=== PATIENT | female | born 1960 | race Caucasian/White ===

== ENCOUNTER → 2019-02-07 | Outpatient (CLI) | payer BC, SELFPAY ==
[2017-02-08 16:26] VITALS: BMI 38.7
[2019-02-07 16:12] LABS: Free T3 2.2 pg/mL (2.18-3.98); T4 Free Direct 0.98 ng/dL (0.76-1.46)
[2019-02-07 16:44] LABS: Vitamin D,25 Hydroxy 35.4 ng/mL (29.95-100.01)
[2019-02-07 20:08] LABS: Hemoglobin A1c 7.6 % (4.2-6.3)
[2019-02-10 12:33] LABS: Anti-Thyroglobulin AB < 1.0 IU/mL (0.0-0.9); Thyroglobulin, Serum Qt. 238.4 ng/mL (1.5-38.5)
== END | disposition home or self-care (01) ==
LOC: MFPLAB 14:18
PROVIDERS: Family Provider Family Medicine; PCP Family Medicine; Referring Provider Family Medicine; Visit Provider Family Medicine
DX: E11.9 Type 2 diabetes mellitus without complications (principal); E28.319 Asymptomatic premature menopause; R79.89 Other specified abnormal findings of blood chemistry
CPT/HCPCS: 36415; 82306; 83036; 84432; 84439; 84443; 84481; 86800

== ENCOUNTER → 2019-02-13 | Outpatient (CLI) | payer BC, SELFPAY ==
--- NOTE | 2019-02-13 11:51 | US_ITS ---
STUDY: THYROID ULTRASOUND REASON FOR EXAM: Female, 59 years old. Enlarged thyroid gland TECHNIQUE: Ultrasound evaluation of the thyroid was performed with real-time and static frausto-scale imaging. COMPARISON: None. FINDINGS: RIGHT LOBE: The right lobe of the thyroid gland measures 5.4 x 1.2 x 2.4 cm. There is a heterogeneous echotexture. 2.5 cm isoechoic solid nodule the right lobe for which ultrasound-guided biopsy is recommended. Another 2.3 cm isoechoic solid nodule in the right lobe for which ultrasound-guided biopsy is recommended. LEFT LOBE: The left lobe of the thyroid gland measures 5.8 x 2.2 x 2.8 cm. There is a heterogeneous echotexture. 4.0 cm isoechoic solid nodule the left lobe for which ultrasound-guided biopsy is recommended. ISTHMUS: The isthmus measures 10 mm thick. . The regional lymph nodes are normal. US/Thyroid IMPRESSION: Multinodular thyroid gland with multiple dominant solid nodules for which ultrasound-guided biopsy is recommended. Electronically Signed: Tahir March MD at 14:04 EDT Tel , Service support ,
== END | disposition home or self-care (01) ==
PROVIDERS: Family Provider Family Medicine; PCP Family Medicine; Referring Provider Family Medicine; Visit Provider Family Medicine
DX: R79.89 Other specified abnormal findings of blood chemistry (principal)
CPT/HCPCS: 76536

== ENCOUNTER → 2019-02-21 | Outpatient (CLI) | payer BC, SELFPAY ==
[2017-02-08 16:26] VITALS: BMI 38.7
--- NOTE | 2019-02-21 08:35 | BD_ITS ---
STUDY: DUAL ENERGY X-RAY ABSORPTIOMETRY / DXA REASON FOR EXAM: Female, 59 years old. The patient is postmenopausal. TECHNIQUE: Bone Mineral Density (BMD) measurements of lumbar spine and bilateral hips were obtained. COMPARISON: None. FINDINGS: Lumbar Spine (L1-L4): g/cm2 (1.311) / T-score (0.9) / Z-score (2.1) Findings are suggestive of normal bone density with a low fracture risk. Left Femur Total: g/cm2 (1.094) / T-score (0.7) / Z-score (1.6) Left Femoral Neck: g/cm2 (1.018) / T-score (-0.1) / Z-score (1.1) Right Femur Total: g/cm2 (1.097) / T-score (0.7) / Z-score (1.6) Right Femoral Neck: g/cm2 (1.062) / T-score (0.2) / Z-score (1.4) BD/Dexa Bone Density Study IMPRESSION: The patient is considered normal as outlined below according to World [employer] Organization (WHO) criteria with a low fracture risk. Reference Information: The T-score is the number of standard deviations above or below the standard which is normal for young adults at their peak bone mineral density. The World Health Organization (WHO) interprets the T-scores as follows: Above -1 Normal bone density Between -1 and -2.5 Osteopenia Equal to / or below -2.5 Osteoporosis As a practical clinical guideline, osteopenia may be graded as follows: Mild -1 through -1.5 Moderate -1.6 through -2.0 Severe -2.1 through -2.4 The Z-score is the number of standard deviations above or below age-matched controls. A Z-score of less than -1.5 would be considered abnormal. References: 1. NIH Osteoporosis and Related Bone Diseases http://www.osteo.org 2. International Society for Clinical Densitometry http://www.iscd.org 3. National Osteoporosis Foundation http://www.nof.org Electronically Signed: Johnathan Rangel, at 15:24 EDT , Service support ,
== END | disposition home or self-care (01) ==
LOC: OPBD 08:30
PROVIDERS: Family Provider Family Medicine; PCP Family Medicine; Referring Provider Family Medicine; Visit Provider Family Medicine
DX: E28.319 Asymptomatic premature menopause (principal)
CPT/HCPCS: 77080

== ENCOUNTER → 2019-02-28 | Outpatient (CLI) | payer BC, SELFPAY ==
--- NOTE | 2019-02-28 10:00 | MISC_PTH ---
PATIENT: LARA ALLEN LOC: [facility] U#:[id number] AGE/SX: 59/F ROOM: RE02/28/[address]: Dr. Santos Arrieta MD : 1960 BED: DIS: 02/28/2019 SPEC #: [id number] RECD: 02/28/19 11:32 STATUS: MICHAEL STIVEN #: [id number] MARY: 02/28/19 10:[address]: Santos Arrieta DEPT: SURGICAL PATHOLOGY RECD BY: Hudson Coyle ENTERED: 02/28/19 14:53 SP TYPE: MISC OTHR DR: Dr. Tyrone Spence MD Tissues: Thyroid gland, NOS Procedures: Surgery Specimen Level IV HEADER OPERATION: Ultrasound-guided biopsy, left and right thyroid PRE-OP DIAGNOSIS: Multinodular goiter TISSUE SUBMITTED: Needle core biopsy, left thyroid MICROSCOPIC DIAGNOSIS Left thyroid, needle core biopsy: Thyroid tissue with fibrosis and a few chronic inflammatory cells, consistent with a benign thyroid nodule (clinically multinodular goiter). CE:jay jay 03/01/19 MICROSCOPIC DESCRIPTION Slides are reviewed. GROSS DESCRIPTION Received in fixative is one container labeled with the patient's name and designated needle core biopsy left thyroid. The specimen consists of an elongated piece of mckeon soft tissue measuring 0.5 cm in length and <0.1 cm in diameter. The specimen is totally submitted in one cassette. / SJ:jay jay 02/28/19 TC:3 [facility]: [id number]
[2019-02-28 10:03] VITALS: BMI 38.7
== END | disposition home or self-care (01) ==
LOC: LABSPEC 12:07
PROVIDERS: Family Provider Family Medicine; PCP Family Medicine; Referring Provider Surgery; Visit Provider Surgery
DX: E04.2 Nontoxic multinodular goiter (principal)
CPT/HCPCS: 88305

== ENCOUNTER → 2019-03-08 | Outpatient (CLI) | payer BC, SELFPAY ==
[2019-02-28 10:03] VITALS: BMI 38.7
--- NOTE | 2019-03-08 11:52 | US_ITS ---
STUDY: THYROID ULTRASOUND REASON FOR EXAM: Female, 59 years old. TECHNIQUE: Ultrasound evaluation of the thyroid was performed with real-time and static frausto-scale imaging. COMPARISON: None. FINDINGS: No obvious right lobe of the thyroid is seen however this isthmus is slightly extended to to the right of the midline of the trachea is evidence of multiple heterogeneous nodules in the isthmus as well as in the left lobe of the thyroid both are enlarged. 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 Electronically Signed: Rupali Ardon, at 15:44 EDT Tel , Service support ,
== END | disposition home or self-care (01) ==
PROVIDERS: Family Provider Family Medicine; PCP Family Medicine; Referring Provider Surgery; Visit Provider Surgery
DX: E04.2 Nontoxic multinodular goiter (principal)
CPT/HCPCS: 76536

== ENCOUNTER 2019-04-07 09:01 | Day surgery (SDC) | payer BC, SELFPAY ==
[2019-02-28 10:03] VITALS: BMI 38.7
--- NOTE | 2019-03-18 09:44 | HP_ITS ---
Intake Vital Signs 03/17/19 Body Mass Index (BMI) 38.7 Intake Visit Reasons: Thyroid Recruitment Internship Required: No Is patient in pain?: No Allergies contact metal agent Allergy (Unknown, Verified 03/17/19 08:32) Unknown adhesive tape Allergy (Verified 03/17/19 08:32) Rash latex Allergy (Verified 03/17/19 08:32) Rash Medications Ascorbic Acid [Vitamin C] 500 mg PO DAILY@0800 09/18/16 [History Confirmed 03/17/19] Aspirin [Low Dose Aspirin EC] 81 mg PO DAILY 09/18/16 [History Confirmed 03/17/19] Cetirizine HCl [All Day Allergy] 10 mg PO DAILY 09/18/16 [History Confirmed 03/17/19] Multivitamins,Therapeutic [Multivitamin] 1 tab PO DAILY 09/18/16 [History Confirmed 03/17/19] keto pill PO QDAY 02/22/19 [History Confirmed 03/17/19] turiene PO BID 02/22/19 [History Confirmed 03/17/19] PFSH Medical History Arthritis (Acute) Gout (Acute) Numbness and tingling (Acute) Type 2 diabetes mellitus (Acute) Surgical History H/O bilateral cataract extraction (Acute) H/O colonoscopy (Acute) H/O dilation and curettage (Acute) H/O lumpectomy (Acute) H/O tubal ligation (Acute) H/O: (Acute) History of bilateral knee replacement (Acute) History of tonsillectomy (Acute) Family History Father Arthritis Heart disease Hypertension Hyperlipidemia Stomach ulcer Mother Breast cancer Diabetes Social History (Updated 03/18/19 @ 09:44 by Santos Arrieta MD) Smoking Status: Never smoker alcohol intake: never substance use type: does not use HPI HPI HPI: LARA ALLEN is a 59 F who presents to the office today for HPI HPI Surgical H&P: Yes HPI: LARA ALLEN is a 59 F who presents to the office today for follow-up from an attempted fine-needle aspiration of her right thyroid gland. I originally performed a fine-needle aspiration on her left thyroid on 02/28/2019. This showed thyroid tissue with fibrosis a few chronic inflammatory cells consistent with benign thyroid nodule. At that time of that fine-needle aspiration I really did not think that she had a right thyroid lobe and in fact I did not do any further biopsies on her. I took her to the ultrasound room and attempted to do a right thyroid fine-needle aspiration. But there was only evidence of an absent or hypoplastic right thyroid lobe and that she had an enlarged isthmus and left thyroid lobe with multiple nodules within it. In the trachea itself looks slightly deviated. We therefore did no fine-needle aspiration. Given the fact that her nodule on the left side is greater than 4 cm she is here to discuss a left thyroid lobectomy and isthmusectomy. ROS General General: No weight change, appetite, fatigue, colon cancer, breast cancer or weakness HEENT HEENT: Yes eye surgery (bilat cataract surgery); no difficulty swallowing, eye injury, swollen glands or hoarseness Endo Endocrine: Yes thyroid disease; no diabetes mellitus, thyroid cancer, Hair loss, heat intolerance or cold intolerance Skin Skin: No rash or changing moles Breast Breast: No left breast lump, right breast lump, nipple discharge, breast pain, abnormal mammogram, abnormal US or breast enlargement Musc Musculoskeletal: Yes arthritis; no back problems, rheumatoid arthritis, gout or joint pain Cardio Cardiovascular: No murmur, pacemaker, heart disease, atrial fibrillation, high blood pressure, heart attack, heart stent, palpitations, shortness of breat with exertion or chest pain Psych Psychiatric: No depression, anxiety or hearing voices Resp Respiratory: No shortness of breath, No sleep apnea, No cough, No COPD, No asthma, No emphysema, No wheezing Gastro Gastrointestinal: No abdominal pain, No nausea or vomiting, No diarrhea, No constipation, No blood in stool, No acid reflux, No hemorrhoids, No ulcers, No gallbladder problem, No black,tarry stools Alex Hematologic: No blood thinners, No blood disorders, No bleeding, No anemia, No blood clots Neuro Neurologic: No weakness Exam Const General: no acute distress, well developed, well hydrated Orientation: oriented to person, oriented to place, oriented to time [facility] Head: normocephalic, atraumatic Ears: external ears normal Mouth: moist mucous membranes Other: Thyroid Exam: Thyroid is enlarged on the left side. But no hard palpable nodules are identified. There is no lymphadenopathy bilaterally. Eyes Sclera: sclerae normal Pupils: normal by confrontation Neck Neck: no lymphadenopathy noted Neck mass: No Thyroid: thyroid normal, symmetrical Chest Chest palpation & inspection: normal inspection of the chest Breast Palpation: No nipple discharge Resp Effort & Inspection: normal respiratory effort Auscultation: clear to auscultation bilaterally Percussion: percussion normal Cardio Rate: regular rate Rhythm: regular rhythm Heart Sounds: no murmurs GI Palpation: soft, no hepatosplenomegaly, no masses, nontender Rectal Exam: other Other: Rectal exam deferred. Extrem General: normal to inspection, no clubbing, cyanosis or edema Assessment & Plan Problems 1. Multinodular goiter (nontoxic) E04.2 Plan My plan is to perform a left-sided thyroid lobectomy and isthmusectomy. I will obtained a frozen section on this at the time of surgery. If this looks just like there is going to be only benign goiter is tissue that I will do nothing to the hypoplastic side of her right thyroid lobe. If however the frozen section shows possible papillary thyroid cancer then I will remove the right side of her hypoplastic thyroid gland. Risk benefits to include bleeding infection possible injury to the parathyroid glands and recurrent laryngeal nerves were discussed in great detail with the patient all of her questions asked were answered. Coding Level of Care Code Off vis,est,level 3 Diagnoses Multinodular goiter (nontoxic) E04.2 03/18/19 0944 <Electronically signed by Santos rico MD> Date _ Santos Arrieta MD I have re-examined the patient. There are no clinical changes since date of exam.
--- NOTE | 2019-03-31 13:13 | EKG12_ITS ---
Test Reason : PRE-OP Blood Pressure : / mmHG Vent. Rate : 080 BPM Atrial Rate : 080 BPM P-R Int : 166 ms QRS Dur : 084 ms QT Int : 376 ms P-R-T Axes : 055 -11 019 degrees QTc Int : 433 ms Normal sinus rhythm Normal ECG Confirmed by RUBEN PRESSLEY, LARA ([id number]), map editor GEETHA HAMILTON ([id number]) on 04/03/2019 1:20:38 PM Referred By: Santos Arrieta Confirmed By:TIERA MIRANDA MD
[2019-03-31 13:51] LABS: Anion Gap 5 (5-15); BUN 15 mg/dL (7-18); BUN/Creat Ratio 18.2 RATIO (10-20); Calcium,Total 9.1 mg/dL (8.5-10.1); Chloride 106 mmol/L (98-107); Creatinine, Serum 0.82 mg/dL (0.55-1.02); EST Glomerular Filtration Rate 75 mL/min (>60); Est Glom Filt Rate - Afr Amer 91 mL/min (>60); Glucose 154 mg/dL (74-106); Potassium 3.8 mmol/L (3.5-5.1); Sodium Level 135 mmol/L (136-145)
[2019-04-07] VITALS (10 sets, daily range): BP systolic 117–169; BP diastolic 63–88; PULSE 69–99; RESP 16–18; TEMP 36.2–36.6; O2SAT 87–98; BMI 36.5
--- NOTE | 2019-04-07 | THYROID_PTH ---
PATIENT: LARA ALLEN LOC: [facility] U#:[id number] AGE/SX: 59/F ROOM: RE04/07/[address]: Dr. Santos Arrieta MD : 1960 BED: DIS: 04/08/2019 SPEC #: [id number] RECD: 04/07/19 13:35 STATUS: MICHAEL STIVEN #: [id number] MARY: 04/07/19 00:[address]: Santos Arrieta DEPT: SURGICAL PATHOLOGY RECD BY: Yi Luke ENTERED: 04/07/19 14:33 SP TYPE: THYROID OTHR DR: Dr. Tyrone Spence MD Tissues: Thyroid gland, NOS Procedures: Frozen Section (charge) Surgery Specimen Level V HEADER OPERATION: Left thyroid lobectomy and isthmusectomy PRE-OP DIAGNOSIS: Multinodular goiter (non toxic) E04.2 TISSUE SUBMITTED: Left lobe of thyroid and isthmus FROZEN SECTION DIAGNOSIS Left lobe of thyroid and isthmus: Multinodular goiter. DREW:jay jay 04/07/19 MICROSCOPIC DIAGNOSIS Thyroid, lobectomy and isthmusectomy: Multinodular goiter with focal calcification. Focal mild chronic inflammation. DREW:power 04/11/19 COMMENT Please make reference to previous specimen [id number] left thyroid needle core biopsy with diagnosis of thyroid tissue with fibrosis and few chronic inflammatory cells, consistent with a benign thyroid nodule (clinically multinodular goiter). MICROSCOPIC DESCRIPTION Slides are reviewed. GROSS DESCRIPTION Received fresh for frozen section diagnosis labeled with the patient's name and number and designated left lobe thyroid and isthmus is a triangular piece of red soft tissue consistent with lobectomy specimen weighing 34.6 gms and measuring 5.2 x 5.5 x 3 cm. No external parathyroid tissue is identified. The resection margin is inked as follows: Anterior - black; posterior - blue; ischemic margin - yellow. Serial sections reveal multiple nodules: the largest node measuring 2.5 cm in greatest dimension. Sections from tow larger nodules are submitted for frozen section diagnosis. Rubber Trimmer sections are submitted in 12 cassettes as follows: 1 - FS, largest nodule; 2 - FS, second largest nodule, 3-12 more sections thyroid lobe (Cassette 3 contained the most superior portion of the thyroid lobe and cassette 12 contained the most anterior portion of the thyroid lobe). DREW:power 04/10/19 TC: 5 CPT: 52898, 87064, 06907
[2019-04-07 10:21] LABS: Bedside Glucose 226 mg/dL (70-110)
[2019-04-07] MEDS: Cefazolin 2 GM in 0.9% Normal Saline 100 ML IV (12:33)
--- NOTE | 2019-04-07 12:43 | PCM.OPRPT ---
Problem List (1) Nontoxic multinodular goiter Status: Acute Report of Operation Date of Procedure: 04/07/19 Pre-Operative Diagnosis: Multinodular goiter with dominant left thyroid nodule Post-Operative Diagnosis: Same Surgery/Procedure Performed:: Left-sided thyroid lobectomy Anesthesiologist: Xavier Man Estimated Blood Loss (mL): < 25 cc Fluids Replaced: 1400 cc Description of Procedure: Patient was brought into the operating room. Placed in the supine position. Under excellent general trach intubation. Towel was placed underneath the shoulder blades and neck was extended and sterilely prepped and draped in usual fashion. Local was injected. Cervical incision was made. Dissection was carried down through the platysma. Subplatysmal flaps were created with use of electrocautery. Gelpi retractor was placed inside the wound. Midline strap muscles were then divided. Starting on the left side. I went to the superior pole vessels and took these down with harmonic dissector then went to the middle thyroidal vein took this down with harmonic dissector and finally went to the inferior pole vessels and took this down with harmonic dissector I rotated the gland from lateral to medial standpoint identifying both the superior and inferior parathyroid glands and then as I rotated it identified the recurrent laryngeal nerve. This took quite a bit of time to get this nerve off of Rich's ligaments and rotate the gland off of the trachea. The left lobe was enlarged and the isthmus was significantly enlarged as well going all the way over to the right side of the thyroid. As I transected the thyroid off of the isthmus there was only a very small remnant of the right thyroid tissue left. I thought about taking this out given the fact that I thought this might be benign there might be a chance that she might not need to be placed on medication postoperatively if she has a small remnant and since there was no nodules within it I thought that it was safe and prudent to leave in. Frozen section was obtained showing benign. Surgicel was placed inside the wound both the right and left side. Midline strap muscles were brought together with a 2-0 Vicryl. Exparel was directed in the surrounding tissues. The platysmal flaps were brought together with 3-0 Vicryl deep dermis with 3-0 Vicryl then a running 4-0 Monocryl in the skin Dermabond was applied sterile dressings were applied and the patient tolerated the procedure well. - Admit VTE Documentation VTE Present on Admission: No VTE Mechan Device Prophylaxis: SCD's VTE Pharm Prophylaxis ordered?: No Reason prophylaxis not ordered:: Treatment Not Indicated
[2019-04-07] MEDS: BUPIVACAINE LIPOSOME/PF 20 ML VIAL OPERA.SITE (13:15)
[2019-04-07 14:56] LABS: Bedside Glucose 159 mg/dL (70-110)
[2019-04-07] MEDS: Lactated Ringers 1,000 ML 65 ML IV (16:09)
[2019-04-07] MEDS: oxyCODONE 5 MG Tablet PO ×2 (19:29→23:29)
--- NOTE | 2019-04-07 22:46 | NURSING ---
pt po drop to 87% on ra while sleeping. pt awaken and 02 at 2lnc applied
[2019-04-08 03:00] VITALS: BP 145/71; PULSE 75; RESP 18; TEMP 36.3; O2SAT 98
[2019-04-08 08:10] VITALS: BP 147/83; PULSE 75; RESP 16; TEMP 36.4; O2SAT 99
--- NOTE | 2019-04-08 10:01 | DCINST_ITS ---
Discharge Diet: Light diet - advance as tolerated - If you have questions about your diet instructions, please talk to your doctor. Discharge Activity: May Not Drive - for 1 week or while taking narcotic pain medicine. May shower in (days): 1 Lifting Restrictions: 10 pounds Call your doctor if your incision/area has: Continuous Slow Oozing, Sudden Increased Bleeding, Increased Pain/ Swelling, Increased Redness, Foul Smelling Discharge Call your doctor if you observe: Fever of 101 or Higher Suture Line Care: Avoid Pulling/Pushing, Avoid Pinching/Bending Additional Dressing/Incision Instructions:: Change or remove dressing in 4 days. Leave steri-strips in place for 1 week. Allergies/Adverse Reactions: Allergies contact metal agent Allergy (Unknown, Verified 04/07/19 15:57) Unknown adhesive tape Allergy (Verified 04/07/19 15:57) Rash paper tape ok latex Allergy (Verified 04/07/19 15:57) Rash Medications to take at Discharge Ascorbic Acid [Vitamin C] 500 mg PO DAILY@0800 09/18/16 Aspirin [Low Dose Aspirin EC] 81 mg PO DAILY 09/18/16 Cetirizine HCl [All Day Allergy] 10 mg PO DAILY 09/18/16 Multivitamins,Therapeutic [Multivitamin] 1 tab PO DAILY 09/18/16 turiene 1 cap PO BID 02/22/19 Oxycodone HCl/Acetaminophen [Percocet 5/325] 1 - 2 tab PO Q4H PRN PRN 6 Days #30 tab 04/07/19 The following prescriptions were given: Oxycodone HCl/Acetaminophen [Percocet 5/325] 1 - 2 tab PO Q4H PRN PRN 6 Days #30 tab PRN Reason: Pain Prescription Printed Orders to be completed after discharge: 12 Lead EKG [[facility]] Time Frame: 03/31/19, Facility: [facility], Location: Cardiovascular Services Basic Metabolic Profile (BMP) Time Frame: 03/31/19, Facility: [facility], Location: Laboratory Hemoglobin A1c Time Frame: 03/31/19, Facility: [facility], Location: Laboratory Primary Care Physician: Tyrone Spence MD [Primary Care Provider] - Test Results: Test results from this visit will be discussed in further detail at your follow- up appointment, if applicable. Please Follow Up With: Santos Arrieta MD - [phone] When: Call to make an appointment to be seen in about 10 days.
== END 2019-04-08 10:20 | disposition home or self-care (01) ==
LOC: SDC 09:01 → AC 09:02 → MS3 12:09
PROVIDERS: Family Provider Family Medicine; PCP Family Medicine; Referring Provider Surgery; Visit Provider Surgery
PROC: (CPT 60220; principal; 2019-04-07 11:45)
DX: E04.2 Nontoxic multinodular goiter (principal); M19.90 Unspecified osteoarthritis, unspecified site; E11.9 Type 2 diabetes mellitus without complications; Z79.899 Other long term (current) drug therapy; Z79.82 Long term (current) use of aspirin
CPT/HCPCS: 60220; 36415; 80048; 82962; 83036; 88307; 88331; 93005; 97802; J7120; J2405

== ENCOUNTER → 2019-04-25 | Outpatient (CLI) | payer BC, SELFPAY ==
[2019-04-07 15:46] VITALS: BMI 36.5
[2019-04-25 14:09] LABS: Free T3 1.7 pg/mL (2.18-3.98); T4 Free Direct 0.52 ng/dL (0.76-1.46)
[2019-04-27 08:52] LABS: Anti-Thyroglobulin AB < 1.0 IU/mL (0.0-0.9); Thyroglobulin, Serum Qt. 16.3 ng/mL (1.5-38.5)
== END | disposition home or self-care (01) ==
LOC: MFPLAB 11:27
PROVIDERS: Family Provider Family Medicine; PCP Family Medicine; Referring Provider Family Medicine; Visit Provider Family Medicine
DX: E06.9 Thyroiditis, unspecified (principal)
CPT/HCPCS: 36415; 84432; 84439; 84443; 84481; 86800

== ENCOUNTER → 2019-06-27 14:11 | Outpatient (CLI) | payer BC, SELFPAY ==
[2019-04-07 15:46] VITALS: BMI 36.5
[2019-06-27 16:00] LABS: Hemoglobin A1c 8.3 % (4.2-6.3)
[2019-06-27 16:20] LABS: Free T3 2.2 pg/mL (2.18-3.98); T4 Free Direct 0.78 ng/dL (0.76-1.46)
== END ==
PROVIDERS: Family Provider Family Medicine; PCP Family Medicine; Referring Provider Family Medicine; Visit Provider Family Medicine
DX: E03.9 Hypothyroidism, unspecified (principal); E11.9 Type 2 diabetes mellitus without complications
CPT/HCPCS: 36415; 83036; 84439; 84443; 84481

== ENCOUNTER → 2019-08-09 09:37 | Outpatient (CLI) | payer BC, SELFPAY ==
[2019-04-07 15:46] VITALS: BMI 36.5
[2019-08-09 12:40] LABS: AST(SGOT) 38 U/L (15-37); Alanine Aminotransfer ALT/SGPT 62 U/L (13-56); Albumin, Serum 3.8 g/dL (3.2-5.0); Alkaline Phosphatase 131 U/L (45-117); Anion Gap 10 (5-15); BUN 12 mg/dL (7-18); BUN/Creat Ratio 13.3 RATIO (10-20); Chloride 104 mmol/L (98-107); EST Glomerular Filtration Rate 67 mL/min (>60); Est Glom Filt Rate - Afr Amer 82 mL/min (>60); Globulin 3.9 g/dL (2.2-4.2); Glucose 194 mg/dL (74-106); Potassium 4.1 mmol/L (3.5-5.1); Protein, Total 7.7 g/dL (6.4-8.2); Sodium Level 134 mmol/L (136-145); T4 Free Direct 1.04 ng/dL (0.76-1.46); Thyroid Stim Hormone (TSH) 7.41 uIU/mL (0.358-3.74)
[2019-08-09 12:41] LABS: Hemoglobin A1c 8.3 % (4.2-6.3)
[2019-08-09 12:54] LABS: Microalbumin,Random Urine 8.1 mg/L (NO RANGE EST.); Microalbumin:Creatinine Ratio 13.5 mg/g CRE (<30 mg/g CRE)
== END ==
PROVIDERS: Family Provider Family Medicine; PCP Family Medicine; Referring Provider Family Medicine; Visit Provider Family Medicine
DX: E11.9 Type 2 diabetes mellitus without complications (principal); E03.9 Hypothyroidism, unspecified
CPT/HCPCS: 36415; 80053; 82043; 82570; 83036; 84439; 84443; 84481

== ENCOUNTER → 2019-10-17 14:12 | Outpatient (CLI) | payer BC, SELFPAY ==
[2019-04-07 15:46] VITALS: BMI 36.5
[2019-10-17 15:46] LABS: T4 Free Direct 1.23 ng/dL (0.76-1.46); Thyroid Stim Hormone (TSH) 3.22 uIU/mL (0.358-3.74)
== END ==
PROVIDERS: PCP Family Medicine; Referring Provider Family Medicine; Visit Provider Family Medicine
DX: E03.9 Hypothyroidism, unspecified (principal)
CPT/HCPCS: 36415; 84439; 84443; 84481

== ENCOUNTER → 2019-12-25 | Outpatient (CLI) | payer BC, SELFPAY ==
[2019-04-07 15:46] VITALS: BMI 36.5
== END | disposition home or self-care (01) ==
LOC: LABSPEC 12-26 10:08
PROVIDERS: PCP Family Medicine; Referring Provider Family Medicine; Visit Provider Family Medicine
DX: B37.3 Candidiasis of vulva and vagina (principal)
CPT/HCPCS: 87101

== ENCOUNTER → 2020-02-28 09:27 | Outpatient (CLI) | payer BC, SELFPAY ==
[2019-04-07 15:46] VITALS: BMI 36.5
[2020-02-28 10:06] LABS: Absolute Lymphocyte Count 1.93 X10^3/uL (0.83-4.51); Absolute Neutrophil Count 4.3 X10^3/uL (2.0-7.7); Basophil# 0.08 X10^3/uL; Basophil% 1.1 % (0-1); Eosinophil# 0.35 X10^3/uL; Eosinophils% 4.9 % (0-5); Hematocrit 41.7 % (37-47); Hemoglobin 13.2 g/dL (12.0-15.0); Lymphocyte # 1.93 X10^3/ul (4.0); Lymphocyte % 26.9 % (19-41); Mean Corp Hgb Conc 31.7 g/dL (32-36); Mean Corpuscular Volume 88.5 fL (81-99); Mean Platelet Vol. 10.4 fl (6.2-12.0); Monocyte# 0.46 X10^3/uL; Monocyte% 6.4 % (0-10); NRBC Flagged by Analyzer 0 % (0-5); Neutrophil # 4.33 X10^3/uL (2.7-7.7); Neutrophil % 60.4 % (47-70); Platelet Count 173 K/mm3 (150-450); RBC Distribution Width CV 13.4 % (11.6-14.6); RBC Distribution Width SD 43.5 fl (35.1-43.9); Red Blood Count 4.71 M/mm3 (4.2-5.4); White Blood Count 7.2 K/mm3 (4.4-11.0)
[2020-02-28 10:35] LABS: ALB/GLOB Ratio 0.9 RATIO (0.9-2.4); AST(SGOT) 28 U/L (15-37); Alanine Aminotransfer ALT/SGPT 43 U/L (13-56); Albumin, Serum 3.5 g/dL (3.2-5.0); Alkaline Phosphatase 111 U/L (45-117); Anion Gap 8 (5-15); BUN 10 mg/dL (7-18); BUN/Creat Ratio 11.6 RATIO (10-20); Chloride 104 mmol/L (98-107); Creatinine, Serum 0.86 mg/dL (0.55-1.02); EST Glomerular Filtration Rate 71 mL/min (>60); Est Glom Filt Rate - Afr Amer 86 mL/min (>60); Free T3 2.2 pg/mL (2.18-3.98); Glucose 187 mg/dL (74-106); Potassium 4.2 mmol/L (3.5-5.1); Protein, Total 7.5 g/dL (6.4-8.2); Sodium Level 138 mmol/L (136-145); T4 Free Direct 1.31 ng/dL (0.76-1.46); Thyroid Stim Hormone (TSH) 3.03 uIU/mL (0.358-3.74)
[2020-02-28 10:37] LABS: Hemoglobin A1c 7.8 % (3.8-5.6)
[2020-02-28 10:52] LABS: Microalbumin,Random Urine < 5.0 mg/L (NO RANGE EST.)
== END ==
PROVIDERS: PCP Family Medicine; Visit Provider Family Medicine
DX: E11.9 Type 2 diabetes mellitus without complications (principal); E03.9 Hypothyroidism, unspecified
CPT/HCPCS: 36415; 80053; 82043; 82570; 83036; 84439; 84443; 84481; 85025

== ENCOUNTER → 2020-05-30 09:35 | Outpatient (CLI) | payer SELFPAY ==
[2019-04-07 15:46] VITALS: BMI 36.5
[2020-05-30 11:50] LABS: Absolute Lymphocyte Count 1.88 X10^3/uL (0.83-4.51); Absolute Neutrophil Count 4.3 X10^3/uL (2.0-7.7); Basophil# 0.04 X10^3/uL; Basophil% 0.6 % (0-1); Eosinophil# 0.32 X10^3/uL; Eosinophils% 4.6 % (0-5); Hemoglobin 12.8 g/dL (12.0-15.0); Lymphocyte # 1.88 X10^3/ul (4.0); Lymphocyte % 26.9 % (19-41); Mean Corpuscular Hgb 28.6 pg (27.0-32.0); Mean Corpuscular Volume 89.5 fL (81-99); Mean Platelet Vol. 10.6 fl (6.2-12.0); Monocyte# 0.37 X10^3/uL; Monocyte% 5.3 % (0-10); NRBC Flagged by Analyzer 0 % (0-5); Neutrophil # 4.34 X10^3/uL (2.7-7.7); Platelet Count 193 K/mm3 (150-450); RBC Distribution Width CV 13.4 % (11.6-14.6); RBC Distribution Width SD 43.8 fl (35.1-43.9); Red Blood Count 4.47 M/mm3 (4.2-5.4)
[2020-06-04 14:43] LABS: Hemoglobin A1c 7.2 % (3.8-5.6)
[2020-06-04 14:51] LABS: Thyroid Stim Hormone (TSH) 2.37 uIU/mL (0.358-3.74)
== END ==
PROVIDERS: PCP Family Medicine; Referring Provider Family Medicine; Visit Provider Family Medicine
DX: E11.9 Type 2 diabetes mellitus without complications (principal)
CPT/HCPCS: 36415; 83036; 84443; 85025

== ENCOUNTER → 2020-11-18 10:51 | Outpatient (CLI) | payer SELFPAY ==
[2019-04-07 15:46] VITALS: BMI 36.5
[2020-11-18 12:43] LABS: Hemoglobin A1c 7.1 % (3.8-5.6)
[2020-11-18 12:55] LABS: ALB/GLOB Ratio 0.9 RATIO (0.9-2.4); AST(SGOT) 39 U/L (15-37); Alanine Aminotransfer ALT/SGPT 53 U/L (13-56); Albumin, Serum 3.6 g/dL (3.2-5.0); Alkaline Phosphatase 127 U/L (45-117); Anion Gap 7 (5-15); BUN 18 mg/dL (7-18); BUN/Creat Ratio 20.9 RATIO (10-20); Calcium,Total 9.6 mg/dL (8.5-10.1); Chloride 104 mmol/L (98-107); Creatinine, Serum 0.86 mg/dL (0.55-1.02); EST Glomerular Filtration Rate 71 mL/min (>60); Est Glom Filt Rate - Afr Amer 86 mL/min (>60); Globulin 4.1 g/dL (2.2-4.2); Glucose 140 mg/dL (74-106); Protein, Total 7.7 g/dL (6.4-8.2); Sodium Level 138 mmol/L (136-145); Thyroid Stim Hormone (TSH) 4.18 uIU/mL (0.358-3.74)
[2020-11-18 16:07] LABS: Microalbumin,Random Urine < 5.0 mg/L (NO RANGE EST.)
[2020-11-19 10:06] LABS: T4 Free Direct 1.14 ng/dL (0.76-1.46)
== END ==
PROVIDERS: PCP Family Medicine; Referring Provider Family Medicine; Visit Provider Family Medicine
DX: E03.9 Hypothyroidism, unspecified (principal); E11.9 Type 2 diabetes mellitus without complications
CPT/HCPCS: 36415; 80053; 82043; 82570; 83036; 84439; 84443

== ENCOUNTER → 2021-04-04 | Outpatient (CLI) | payer SELFPAY ==
[2019-04-07 15:46] VITALS: BMI 36.5
== END | disposition home or self-care (01) ==
LOC: LABSPEC 14:02
PROVIDERS: PCP Family Medicine; Referring Provider Family Medicine; Visit Provider Family Medicine
DX: L02.214 Cutaneous abscess of groin (principal)
CPT/HCPCS: 87070; 87077; 87186; 87205

== ENCOUNTER → 2021-05-30 07:58 | Outpatient (CLI) | payer SELFPAY ==
[2021-05-30 10:27] LABS: Hemoglobin A1c 12.6 % (3.8-5.6)
[2021-05-30 10:33] LABS: ALB/GLOB Ratio 0.8 RATIO (0.9-2.4); AST(SGOT) 80 U/L (15-37); Alanine Aminotransfer ALT/SGPT 104 U/L (13-56); Albumin, Serum 3.3 g/dL (3.2-5.0); Alkaline Phosphatase 208 U/L (45-117); Anion Gap 7 (5-15); BUN 14 mg/dL (7-18); BUN/Creat Ratio 13.7 RATIO (10-20); Chloride 100 mmol/L (98-107); Cholesterol 203 mg/dL (200); Creatinine, Serum 1.02 mg/dL (0.55-1.02); EST Glomerular Filtration Rate 58 mL/min (>60); Est Glom Filt Rate - Afr Amer 71 mL/min (>60); GGTP 64 U/L (5-55); Globulin 4.2 g/dL (2.2-4.2); Glucose 417 mg/dL (74-106); High Density Lipoprotein 41 mg/dL; Potassium 4.2 mmol/L (3.5-5.1); Protein, Total 7.5 g/dL (6.4-8.2); Sodium Level 132 mmol/L (136-145); T4 Free Direct 1.11 ng/dL (0.76-1.46); Thyroid Stim Hormone (TSH) 7.44 uIU/mL (0.358-3.74); Triglycerides 214 mg/dL; Very Low Density Lipoprotein 43 mg/dL (5-40)
[2021-05-30 10:35] LABS: Microalbumin,Random Urine 9.4 mg/L (NO RANGE EST.)
== END ==
PROVIDERS: PCP Family Medicine; Referring Provider Family Medicine; Visit Provider Family Medicine
DX: E11.9 Type 2 diabetes mellitus without complications (principal); E03.9 Hypothyroidism, unspecified; R74.01 Elevation of levels of liver transaminase levels
CPT/HCPCS: 36415; 80053; 80061; 82043; 82977; 83036; 84439; 84443

== ENCOUNTER 2021-09-24 09:08 | Outpatient (CLI) | payer SELFPAY ==
[2021-09-24 11:21] LABS: Creatinine, Serum 0.86 mg/dL (0.55-1.02); EST Glomerular Filtration Rate 71 mL/min (>60); Est Glom Filt Rate - Afr Amer 86 mL/min (>60); Potassium 4.1 mmol/L (3.5-5.1); T4 Free Direct 1.35 ng/dL (0.76-1.46)
== END 2021-09-24 23:59 | disposition short-term general hospital (02) ==
PROVIDERS: PCP Family Medicine; Referring Provider Family Medicine; Visit Provider Family Medicine
DX: E03.9 Hypothyroidism, unspecified (principal); E11.65 Type 2 diabetes mellitus with hyperglycemia
CPT/HCPCS: 36415; 82565; 84132; 84439; 84443

== ENCOUNTER 2021-12-30 09:44 | Outpatient (CLI) | payer SELFPAY ==
[2021-12-30 12:32] LABS: Thyroid Stim Hormone (TSH) 3.24 uIU/mL (0.358-3.74)
== END 2021-12-30 23:59 | disposition home or self-care (01) ==
PROVIDERS: PCP Family Medicine; Referring Provider Family Medicine; Visit Provider Family Medicine
DX: E03.9 Hypothyroidism, unspecified (principal)
CPT/HCPCS: 36415; 84443

== ENCOUNTER → 2022-01-05 | Outpatient (CLI) | payer SELFPAY ==
[2022-01-05 12:11] LABS: Hematocrit 42.6 % (37-47); Hemoglobin 14.1 g/dL (12.0-15.0)
[2022-01-05 13:20] LABS: Alanine Aminotransfer ALT/SGPT 95 U/L (13-56); Cholesterol 179 mg/dL (200); Creatinine, Serum 0.88 mg/dL (0.55-1.02); EST Glomerular Filtration Rate 69 mL/min (>60); Est Glom Filt Rate - Afr Amer 84 mL/min (>60); High Density Lipoprotein 47 mg/dL; Triglycerides 130 mg/dL; Very Low Density Lipoprotein 26 mg/dL (5-40)
== END | disposition home or self-care (01) ==
PROVIDERS: PCP Family Medicine; Referring Provider Family Medicine; Visit Provider Family Medicine
DX: E11.65 Type 2 diabetes mellitus with hyperglycemia (principal); G47.30 Sleep apnea, unspecified
CPT/HCPCS: 36415; 80061; 82565; 84460; 85014; 85018

== ENCOUNTER → 2022-07-09 | Outpatient (CLI) | payer SELFPAY ==
[2022-07-09 12:05] LABS: Anion Gap 6 (5-15); BUN 13 mg/dL (7-18); BUN/Creat Ratio 15.3 RATIO (10-20); Calcium,Total 9.3 mg/dL (8.5-10.1); Chloride 104 mmol/L (98-107); Creatinine, Serum 0.85 mg/dL (0.55-1.02); EST Glomerular Filtration Rate 72 mL/min (>60); Est Glom Filt Rate - Afr Amer 87 mL/min (>60); Glucose 237 mg/dL (74-106); Magnesium 2.3 mg/dL (1.6-2.6); Potassium 4.3 mmol/L (3.5-5.1); Sodium Level 134 mmol/L (136-145); Thyroid Stim Hormone (TSH) 0.09 uIU/mL (0.358-3.74)
== END | disposition home or self-care (01) ==
LOC: MTLAB 08:36
PROVIDERS: PCP Family Medicine; Referring Provider Family Medicine; Visit Provider Family Medicine
DX: E03.9 Hypothyroidism, unspecified (principal); E11.22 Type 2 diabetes mellitus with diabetic chronic kidney disease; N18.9 Chronic kidney disease, unspecified; M79.18 Myalgia, other site
CPT/HCPCS: 36415; 80048; 83735; 84443

== ENCOUNTER → 2022-08-25 | Outpatient (CLI) | payer SELFPAY ==
[2022-08-25 15:09] LABS: T4 Free Direct 1.49 ng/dL (0.76-1.46); Thyroid Stim Hormone (TSH) 2.54 uIU/mL (0.358-3.74); Uric Acid 6.1 mg/dL (2.6-6.0)
[2022-08-25 15:11] LABS: Erythrocyte Sedimentation Rate 69 mm/hr (0-30)
[2022-08-25 15:13] LABS: Absolute Neutrophil Count 8.7 X10^3/uL (2.0-7.7); Basophil# 0.07 X10^3/uL; Basophil% 0.6 % (0-1); Eosinophil# 0.48 X10^3/uL; Eosinophils% 3.9 % (0-5); Hematocrit 41.3 % (37-47); Hemoglobin 13.4 g/dL (12.0-15.0); Lymphocyte % 17.2 % (19-41); Mean Corp Hgb Conc 32.4 g/dL (32-36); Mean Corpuscular Hgb 26.9 pg (27.0-32.0); Mean Corpuscular Volume 82.9 fL (81-99); Monocyte# 0.84 X10^3/uL; Monocyte% 6.9 % (0-10); NRBC Flagged by Analyzer 0 % (0-5); Neutrophil # 8.66 X10^3/uL (2.7-7.7); Neutrophil % 70.7 % (47-70); Platelet Count 247 K/mm3 (150-450); RBC Distribution Width CV 13.2 % (11.6-14.6); RBC Distribution Width SD 39.6 fl (35.1-43.9); Red Blood Count 4.98 M/mm3 (4.2-5.4); White Blood Count 12.2 K/mm3 (4.4-11.0)
[2022-08-26 22:10] LABS: ANTINUCLEAR ANTIBODIES DIRECT Negative (Negative)
== END | disposition home or self-care (01) ==
LOC: MTLAB 10:36
PROVIDERS: PCP Family Medicine; Referring Provider Family Medicine; Visit Provider Family Medicine
DX: M25.50 Pain in unspecified joint (principal); E03.9 Hypothyroidism, unspecified
CPT/HCPCS: 36415; 84439; 84443; 84550; 85025; 85652; 86038; 86140; 86431